=== PATIENT | female | born 1990 | race Caucasian/White ===

== ENCOUNTER 2019-11-17 19:55 | Inpatient (IN) | payer OTHER ==
[2019-11-17] MEDS ORDERED: ACETAMINOPHEN 325 MG TABLET (FP) PO ONE (20:00)
[2019-11-17] MEDS: ELECTROLYTE-148 SOLN 1,000 ML IV SCH (20:30)
--- NOTE | 2019-11-17 21:05 | HP ---
Past Medical History - Primary Care Physician PCP:: Leoncio Meadows E - Admission Chief Complaint: term gest., ctx on and off. History of Present Illness: For delivery, poss augmentation/induction. Uneventful gestation. 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: No: Alzheimer's, CVA, Dementia, Migraine, Multiple Sclerosis, Peripheral Neuropathy, Parkinson's, Seizure, Syncope, TIA, Vertigo, Other Cardiovascular: No: AFIB, Aneurysm, Aortic Insufficiency, Aortic Stenosis, CAD, CHF, Deep Vein Thrombosis, HTN, Hyperlipdemia, MS, Mitral Insufficiency, Mitral Stenosis, Murmur, Pulmonary Hypertension, Other Pulmonary: No: Asthma, Bronchitis, Cancer, COPD, O2 Dependent, Pneumonia, Previously Intubated, Pulmonary Embolus, Pulmonary Fibrosis, Sleep Apnea, Other Gastrointestinal: No: Ascites, Cancer, Constipation, Crohn's Disease, Diverticulitis, Diverticulosis, Esophageal Varices, Gastritis, GERD, GI Bleed, Hemorrhoids, Hiatal Hernia, Inflamatory Bowel Disease, Irritable Bowel Disease, Pancreatitis, Peptic Ulcer Disease, Ulcerative Colitis, Other Hepatobiliary: No: Cirrhosis, Cholelithiasis, Cholecystitis, Choledocholithiasis, Hepatitis A, Hepatitis B, Hepatitis C, Other Renal/: No: Renal Failure, Renal Inusuff, BPH, Cancer, Hematuria, Hemodialysis, Neurogenic Bladder, Renal Calculi, UTI, Other ...Para: 2 ... Weeks Gestation by Dates: 38.6 ...EDC by Dates: 11/26/19 Heme/Onc: No: Anemia, B12 Deficiency, Bleeding Disorder, Cancer, Current Chemotherapy, Current Radiation Therapy, Hemochromatosis, Hypercoaguable State, Myeloproliferative Synd, Sickle Cell Disease, Sickle Cell Trait, Thrombocytopenia, Other Infectious Disease: No: AIDS, C-Diff, Herpes Zoster, HIV, MRSA, STD's, Tuberculosis, VREF, Other Psych: No: Addictions, Anxiety, Bipolar, Depression, Panic, Psychosis, Schizophrenia, Other Musculoskeletal: No: Bursitis, Chronic low back pain, Hemiparesis, Hemiplegia, Osteoarthritis, Paraplegia, Other Rheumatology: No: Fibromyalgia, Gout, Lupus, Rheumatoid Arthritis, Sarcoidosis, Vasculitis, Other ENT: No: Allergic Rhinitis, Sinusitis, Other Endocrine: No: Owen's Disease, Donner's Disease, Diabetes Insipidus, Diabetes Mellitus, Hyperparathyroidism, Hyperthyroidism, Hypothyroidism, Osteopenia, SIADH, Other Dermatology: No: Basal Cell, Cellulitis, Eczema, Melanoma, Psoriasis, Squamous Cell, Other - Past Surgical History Past Surgical History: Yes: None Hx Myomectomy: No Hx Transabdominal Cerclage: No - Smoking History Have you smoked in the past 12 months: No - Alcohol/Substance Use Hx Alcohol Use: No History of Substance Use: reports: None - Social History History of Recent Travel: No Home Medications - Allergies Allergies/Adverse Reactions: Allergies Allergy/AdvReac Type Severity Reaction Status Date / Time No Known Allergies Allergy Verified 11/17/19 22:40 Review of Systems - Review of Systems Constitutional: reports: No Symptoms Eyes: reports: No Symptoms HENT: reports: No Symptoms Neck: reports: No Symptoms Cardiovascular: reports: No Symptoms Respiratory: reports: No Symptoms Gastrointestinal: reports: No Symptoms Genitourinary: reports: No Symptoms Breasts: reports: No Symptoms Reported Musculoskeletal: reports: No Symptoms Integumentary: reports: No Symptoms Neurological: reports: No Symptoms Endocrine: reports: No Symptoms Hematology/Lymphatic: reports: No Symptoms Psychiatric: reports: No Symptoms Physical Exam - Maternity Constitutional: Yes: Well Nourished, No Distress, Calm Eyes: Yes: WNL, Conjunctiva Clear, EOM Intact HENT: Yes: WNL, Atraumatic, Normocephalic Neck: Yes: WNL, Supple, Trachea Midline Cardiovascular: Yes: WNL, Regular Rate and Rhythm Breast(s): Yes: WNL - Abdominal Exam/OB Fundal Height: 40 Number of Fetuses: Single Presentation: Vertex Contractions: Yes Regularity: Irregular Intensity: Mild Monitor Mode: External Heart Rate (range): 140 Heart Rate Location: [facility] Category: I Accelerations: Uniform Decelerations: None - Vaginal Exam/OB Vaginal Bleeding: No Speculum Exam: No Dilatation (cm): 1 Effacement (%): 0 Amniotic Membrane Status: Intact Presentation: Vertex/Position Station: -3 - Physical Exam Musculoskeletal: Yes: WNL Extremities: Yes: WNL Integumentary: Yes: WNL ...Motor Strength: WNL Problem List - Problems (1) Term Code(s): Z34.90 - ENCNTR FOR SUPRVSN OF NORMAL , UNSP, UNSP TRIMESTER (2) LGA (large for gestational age) fetus Code(s): GGK5452 - (3) Encounter for induction of labor Code(s): Z34.90 - ENCNTR FOR SUPRVSN OF NORMAL , UNSP, UNSP TRIMESTER (4) Irregular uterine contractions Code(s): O62.2 - OTHER UTERINE INERTIA Assessment/Plan Ctx on and off all day. Induction/augmentation offered. Pt. desires to be delivered. Given Tylenol for DOAN. BP under control. Anemia. Cervidil inserted.
[2019-11-17 21:33] VITALS: BMI 37.3
[2019-11-17] MEDS ORDERED: ACETAMINOPHEN 325 MG TABLET (FP) ONE (22:11)
[2019-11-17 22:37] LABS: BASO % 0.7 % (0-2.0); EOS % 1.8 % (0-4.5); HEMATOCRIT 26.5 % (32.4-45.2); HEMOGLOBIN 8.7 GM/dL (10.7-15.3); LYMPH % 14.2 % (8-40); MCH 27.5 pg (25.7-33.7); MCHC 32.8 g/dl (32.0-36.0); MEAN CELL VOLUME 83.8 fl (80-96); MEAN PLT VOLUME 11.8 fl (7.5-11.1); MONO % 9.9 % (3.8-10.2); NEUT % 73.4 % (42.8-82.8); PLATELET COUNT 180 K/MM3 (134-434); RBC 3.16 M/mm3 (3.60-5.2); RDW 13.7 % (11.6-15.6); WHITE BLOOD COUNT 8.2 K/mm3 (4.0-10.0)
[2019-11-17 22:44] LABS: INR 0.92 (0.83-1.09); PROTHROMBIN TIME (PATIENT) 10.9 SEC (9.7-13.0)
[2019-11-17 22:48] LABS: ACTIVATED PTT 26.2 SECONDS (25.2-36.5)
[2019-11-17 23:03] LABS: BLOOD UREA NITROGEN 8.9 mg/dL (7-18); CALCIUM 8.2 mg/dL (8.5-10.1); CREATININE 0.6 mg/dL (0.55-1.3); POTASSIUM 3.9 mmol/L (3.5-5.1)
[2019-11-17] MEDS ORDERED: DINOPROSTONE 10 MG VAGINAL SUPPOSITORY VG ONE (23:21)
[2019-11-18 03:37] LABS: RETICULOCYTES 2.19 % (0.5-1.5)
[2019-11-18 04:15] LABS: URIC ACID 4.1 mg/dL (2.6-7.2)
[2019-11-18 05:33] LABS: PH,URINE 6.5 (5.0-8.0); URINE APPEARANCE CLEAR; URINE BILIRUBIN NEGATIVE (NEGATIVE); URINE COLOR YELLOW; URINE GLUCOSE (UA) NEGATIVE (NEGATIVE); URINE KETONE NEGATIVE (NEGATIVE); URINE LEUK ESTERASE NEGATIVE (NEGATIVE); URINE NITRITE NEGATIVE (NEGATIVE); URINE PROTEIN NEGATIVE (NEGATIVE); URINE UROBILINOGEN 0.2 mg/dL (0.2-1.0)
--- NOTE | 2019-11-18 06:11 | PN ---
Progress Note, Labor Vaginal Exam #2 Labor Exam Date: 11/18/19 Labor Exam Time: 06:05 Heart Rate (range): 135, reactive Dilatation: 1 Effacement (%): 0 Amniotic Membrane Status: Intact Presentation: Vertex/Position Station: -3 (No change w Cervidil. Removed. BP labile. Preeclampsia labs WNL. Unable to ROM. Rest, shower. Pitocin in 1 hour. D/W patient.)
[2019-11-18] MEDS ORDERED: OXYTOCIN 30 UNITS in 0.9% NS 30 UNIT/500 ML INFUS.BAG IVPB SCH (07:00)
[2019-11-18] MEDS ORDERED: OXYTOCIN 30 UNITS in 0.9% NS 30 UNIT/500 ML INFUS.BAG IVPB ONE (07:42)
[2019-11-18] MEDS: ELECTROLYTE-148 SOLN 1,000 ML IV SCH ×2 (08:00→13:00)
[2019-11-18] MEDS ORDERED: OXYTOCIN 20 UNITS in 0.9% NS 20 UNIT/1,000 ML INFUS.BAG IV ONE (10:02)
--- NOTE | 2019-11-18 11:14 | PN ---
Progress Note, Labor Vaginal Exam #3 Labor Exam Date: 11/18/19 Labor Exam Time: 10:50 Heart Rate (range): 135 Dilatation: 1 Effacement (%): 0 Amniotic Membrane Status: Intact Presentation: Vertex/Position Station: -3 (Few isolated lates; Pit stopped. FH now cat. 1 - Pit restarted.)
--- NOTE | 2019-11-18 14:22 | PN ---
Progress Note, Labor Vaginal Exam #4 Labor Exam Date: 11/18/19 Labor Exam Time: 14:14 Heart Rate (range): 140 Dilatation: 2 Effacement (%): 30 Amniotic Membrane Status: Intact Station: -2 (AROM - clear.) Remarks: Slow progress. FH is stable. Pt. tolerates her labor well; no pain meds yet. Observe progress. Poss. c/s discussed.
[2019-11-18] MEDS ORDERED: BUTORPHANOL TARTRATE 1 MG/ML VIAL IVPB ONE (14:30)
[2019-11-18] MEDS ORDERED: PROMETHAZINE HCL 25 MG/1 ML VIAL IVPB ONE (14:30)
[2019-11-18] MEDS ORDERED: PROMETHAZINE HCL 25 MG/1 ML VIAL ONE (14:32)
[2019-11-18] MEDS ORDERED: BUTORPHANOL TARTRATE 2 MG/ML VIAL ONE (14:32)
--- NOTE | 2019-11-18 16:52 | PN ---
Progress Note, Labor Vaginal Exam #5 Labor Exam Date: 11/18/19 Labor Exam Time: 16:50 Dilatation: 2-3 Effacement (%): 30 Amniotic Membrane Status: Ruptured Presentation: Vertex/Position Station: -3 (No progress. Vx out of pelvis. D/w pt. Will deliver by c/section. All pros and cons discussed.)
[2019-11-18] MEDS ORDERED: CITRIC ACID/SODIUM CITRATE 30 ML UNIT-DOSE CUP PO ONE ×2 (16:56→16:57)
[2019-11-18] MEDS ORDERED: morphine SULFATE/PF 0.5 MG/ML (2cc Syringe - QUVA) ONE (17:39)
[2019-11-18] MEDS ORDERED: ACETAMINOPHEN 1000 MG/100 ML VIAL (NON FORMULARY) IVPB PRN (19:43)
[2019-11-18] MEDS ORDERED: IBUPROFEN 800 MG/8 ML IJ IVPB PRN (19:43)
[2019-11-18] MEDS ORDERED: oxyCODONE HCL 5 MG TABLET PO PRN (19:43)
[2019-11-18] MEDS ORDERED: ONDANSETRON 4 MG/2 ML VIAL IVPB PRN (19:43)
[2019-11-18] MEDS ORDERED: SENNOSIDES/DOCUSATE COMBO (SENNA PLUS) TABLET (UD) PO PRN (19:43)
[2019-11-18] MEDS ORDERED: OXYTOCIN 20 UNITS in 0.9% NS 20 UNIT/1,000 ML INFUS.BAG IV SCH (19:45)
--- NOTE | 2019-11-18 20:00 | PN ---
Delivery - Delivery Section: Primary Type of Anesthesia: Spinal Episiotomy/Laceration: None EBL (cc): 500 Delivery, Single - Stages of Labor Date 1st Stage Initiatied: 11/18/19 Time 1st Stage Initiated: 09:00 Date of Delivery: 11/18/19 Time of Delivery: 17:59 Time Placenta Delivered: 18:00 - Condition of Infant Security Control Assessor/Furnace Stock Inspector Present: Yes Name: Stephanie Alexander Gender: Male Weight: 6 lb 9 oz Position: Right, OT Total Hours ROM (Hrs/Mins): 3/49 - 1 Minute Total Score: 9 5 Minutes Total Score: 9 - [place] Feeding Plan Initial Plan: Exclusive throughout hospitalization Remarks - Remarks Remarks: Uneventful c/section. Pt is happy.
[2019-11-19] MEDS: CEFAZOLIN 1 GM/D5W 1 GM/50 ML BAG IVPB SCH ×3 (02:30→17:54)
[2019-11-19 08:22] LABS: BASO % 0.6 % (0-2.0); EOS % 1.4 % (0-4.5); HEMATOCRIT 24.7 % (32.4-45.2); HEMOGLOBIN 7.9 GM/dL (10.7-15.3); LYMPH % 12.7 % (8-40); MCH 27.4 pg (25.7-33.7); MCHC 32.2 g/dl (32.0-36.0); MEAN CELL VOLUME 84.9 fl (80-96); MEAN PLT VOLUME 9.9 fl (7.5-11.1); NEUT % 74.3 % (42.8-82.8); PLATELET COUNT 140 K/MM3 (134-434); RDW 13.8 % (11.6-15.6); WHITE BLOOD COUNT 6.9 K/mm3 (4.0-10.0)
--- NOTE | 2019-11-19 08:43 | PN ---
Progress Note, Physician - Current Medication List Current Medications: Active Medications Acetaminophen (Tylenol -) 650 mg PO Q6H PRN PRN Reason: PAIN LEVEL 1-5 Acetaminophen (Ofirmev Injection -) 1,000 mg IVPB Q6H PRN PRN Reason: PAIN LEVEL 4 - 6 Stop: 11/19/19 19:43 Bisacodyl (Dulcolax Suppository -) 10 mg RC PRN PRN PRN Reason: CONSTIPATION Parenteral Electrolytes (Plasma-Lyte 148 -) 1,000 mls @ 125 mls/hr IV ASDIR EVELYN Last Admin: 11/18/19 13:00 Dose: 125 mls/hr Documented by: Oxytocin/Sodium Chloride (Normal Saline+20 Units Oxytocin -) 20 unit in 1,000 mls @ 125 mls/hr IV ASDIR EVELYN Cefazolin Sodium (Ancef 1 Gm Premixed Ivpb -) 1 gm in 50 mls @ 100 mls/hr IVPB Q8H-IV EVELYN Stop: 11/20/19 01:59 Last Admin: 11/19/19 02:30 Dose: 100 mls/hr Documented by: Ibuprofen (Motrin -) 600 mg PO Q4H PRN PRN Reason: PAIN LEVEL 1 - 3 Ibuprofen (Caldolor Injection -) 800 mg IVPB Q8H PRN PRN Reason: PAIN LEVEL 1-5 Stop: 11/19/19 19:43 Last Admin: 11/18/19 23:38 Dose: 800 mg Documented by: Ondansetron HCl (Zofran Injection) 4 mg IVPB Q4H PRN PRN Reason: NAUSEA AND/OR VOMITING Oxycodone HCl (Roxicodone -) 5 mg PO Q6H PRN PRN Reason: Pain Level 4 - 8 Senna/Docusate Sodium (Pericolace -) 2 tablet PO HS PRN PRN Reason: CONSTIPATION Simethicone (Mylicon -) 80 mg PO Q4H PRN PRN Reason: GAS - Objective Vital Signs: Vital Signs Temperature 98.2 F 11/19/19 06:00 Pulse Rate 58 L 11/19/19 06:00 Respiratory Rate 18 11/19/19 08:00 Blood Pressure 124/68 11/19/19 06:00 O2 Sat by Pulse Oximetry (%) 100 11/19/19 06:00 Eyes: Yes: WNL, Conjunctiva Clear HENT: Yes: WNL, Atraumatic, Normocephalic Neck: Yes: WNL, Supple, Trachea Midline Cardiovascular: Yes: WNL, Regular Rate and Rhythm Respiratory: Yes: WNL, Regular, CTA Bilaterally Gastrointestinal: Yes: WNL, Normal Bowel Sounds, Soft (Invcision clean and dry.) Genitourinary: Yes: WNL Breast(s): Yes: WNL Musculoskeletal: Yes: WNL Extremities: Yes: WNL Edema: No Integumentary: Yes: WNL Neurological: Yes: WNL, Alert, Oriented ...Motor Strength: WNL Psychiatric: Yes: WNL Labs: CBC, BMP 11/19/19 08:10 11/17/19 22:30 INR, PTT INR 0.92 (0.83-1.09) 11/17/19 22:30 Problem List - Problems (1) Term Code(s): Z34.90 - ENCNTR FOR SUPRVSN OF NORMAL , UNSP, UNSP TRIMESTER (2) LGA (large for gestational age) fetus Code(s): [id number] - (3) Encounter for induction of labor Code(s): Z34.90 - ENCNTR FOR SUPRVSN OF NORMAL , UNSP, UNSP TRIMESTER (4) Irregular uterine contractions Code(s): O62.2 - OTHER UTERINE INERTIA (5) Status post section Code(s): Z98.891 - HISTORY OF UTERINE SCAR FROM PREVIOUS SURGERY Assessment/Plan Good recovery. OOB, reg. diet. May shower.
[2019-11-19] MEDS: IBUPROFEN 600 MG TABLET (FP) PO PRN ×3 (09:08→21:15)
[2019-11-19] MEDS: SIMETHICONE 80 MG TAB.CHEW (FP) PO PRN ×3 (09:08→21:15)
[2019-11-19] MEDS: ACETAMINOPHEN 325 MG TABLET (FP) PO PRN ×3 (09:09→21:16)
--- NOTE | 2019-11-19 10:35 | PN ---
Progress Note (short form) - Note Progress Note: POD #1 s/p C/s under spinal anesthesia with Duramorph. Doing well, denies puritus/n/v. Pain controlled. All questions answered.
[2019-11-19] MEDS: ELECTROLYTE-148 SOLN 1,000 ML IV SCH (19:03)
[2019-11-19] MEDS ORDERED: BISACODYL 10 MG SUPP.RECT RC PRN (19:43)
[2019-11-20] MEDS: ACETAMINOPHEN 325 MG TABLET (FP) PO PRN (08:59)
[2019-11-20] MEDS: SIMETHICONE 80 MG TAB.CHEW (FP) PO PRN (08:59)
[2019-11-20] MEDS: IBUPROFEN 600 MG TABLET (FP) PO PRN (08:59)
[2019-11-20 09:32] VITALS: BP 125/71; PULSE 66; TEMP 97.7
--- NOTE | 2019-11-20 10:29 | OP ---
DATE OF OPERATION: DATE OF DICTATION: 11/18/2019 PREOPERATIVE DIAGNOSES: 1. Intrauterine 39 weeks. 2. Arrest of labor. 3. Failed augmentation. POSTOPERATIVE DIAGNOSES: 1. Intrauterine 39 weeks. 2. Arrest of labor. 3. Failed augmentation. 4. Occipital transverse to occipital posterior position. 5. Tight nuchal cord. 6. True knot. OPERATION: Transverse low segment primary section. SURGEON: Eliel Buckley MD PRESS OPERATOR APPRENTICE: Leighton Juan MD ANESTHESIA: Spinal. ANESTHESIOLOGIST: MD Shanta NEONATOLOGY: Chacha Alexander DO PROCDURE AND FINDINGS: Under excellent, fast spinal block, patient was placed in dorsal supine position with mild left lateral tilt, prepped and draped in the normal fashion. Incision was entered through Pfannenstiel incision that was carried transversely through subcutaneous tissue and fascia. The recti muscles were dissected off the fascia, in the midline and peritoneum was entered sharply. Peritoneal incision was opened vertically. Term uterus with normal adnexa was noted. Lower uterine segment was distended by the head that was not in the inlet. Bladder flap was incised and peeled off the lower uterine segment. Hysterotomy was performed transversely and extended laterally with bandage scissors. Clear amniotic fluid was observed. A male was delivered through the hysterotomy, cried and breathed spontaneously. Cord was noted to be tight around the neck holding the baby up. There was also a true knot on the umbilical cord. Umbilical cord was divided with delay and baby was handed over to the team. 's were 9 and 9, and baby's weight was 6 pounds, 9 ounces. Baby was in an LOT to LOP position. Placenta was removed and uterine cavity was cleaned. Hysterotomy was closed with continuous running Biosyn 0 interlocking suture. One area with possible oozing was secured with Biosyn 0 mattress suture that also reinforced the closure. Pelvis was lavaged and thoroughly examined. Hemostasis was excellent. Sponge and instrument count was correct. Abdomen was closed in layers with peritoneum closed with continuous running 2-0 Biosyn suture. Fascia was closed with continuous running Vicryl 1 suture. Subcutaneous tissue was approximated with Biosyn 2-0 interrupted suture and skin was closed with subcuticular continuous running V-Loc 3-0 suture. Steri-Strips and sterile dressing were applied on the incision. Dressing was held in place with a binder without tape. Urine was copious and clear in the Schneider catheter bag. Blood loss was 500 mL. There was no complication with surgical part, nor with the anesthesia. Patient was transferred to PACU comfortable and stable. ELIEL BUCKLEY MD [id number]
--- NOTE | 2019-11-20 15:20 | PN ---
Progress Note (short form) - Note Progress Note: POD # 2. VSS. Feels good. PE WNL. Instructed. Home. Problem List - Problems (1) Term Code(s): Z34.90 - ENCNTR FOR SUPRVSN OF NORMAL , UNSP, UNSP TRIMESTER (2) LGA (large for gestational age) fetus Code(s): [id number] - (3) Encounter for induction of labor Code(s): Z34.90 - ENCNTR FOR SUPRVSN OF NORMAL , UNSP, UNSP TRIMESTER (4) Irregular uterine contractions Code(s): O62.2 - OTHER UTERINE INERTIA (5) Status post section Code(s): Z98.891 - HISTORY OF UTERINE SCAR FROM PREVIOUS SURGERY
--- NOTE | 2019-11-20 15:23 | DS ---
Physical Exam-ROAD MACHINERY INSPECTOR Vital Signs: Vital Signs Temperature 97.7 F 11/20/19 09:27 Pulse Rate 66 11/20/19 09:27 Respiratory Rate 18 11/20/19 09:27 Blood Pressure 125/71 11/20/19 09:27 O2 Sat by Pulse Oximetry (%) 100 11/19/19 06:00 Constitutional: Yes: Well Nourished, No Distress, Calm Eyes: Yes: WNL, Conjunctiva Clear, EOM Intact HENT: Yes: WNL, Atraumatic, Normocephalic Neck: Yes: WNL, Supple, Trachea Midline Cardiovascular: Yes: WNL, Regular Rate and Rhythm Respiratory: Yes: WNL, Regular, CTA Bilaterally Gastrointestinal: Yes: WNL ...Rectal Exam: Yes: WNL Renal/: Yes: WNL Breast(s): Yes: WNL Musculoskeletal: Yes: WNL Extremities: Yes: WNL Integumentary: Yes: WNL Neurological: Yes: WNL, Alert, Oriented ...Motor Strength: WNL Psychiatric: Yes: WNL, Alert, Oriented Labs: CBC, BMP 11/19/19 08:10 11/17/19 22:30 Delivery - Delivery Vaginal Delivery: No Problems (Healing well.) Section: Primary Type of Anesthesia: Spinal Episiotomy/Laceration: None EBL (cc): 500 Delivery, Single - Stages of Labor Date 1st Stage Initiatied: 11/18/19 Time 1st Stage Initiated: 09:00 Date of Delivery: 11/18/19 Time of Delivery: 17:59 Time Placenta Delivered: 18:00 - Condition of Infant Coal Trammer/Passenger Service Agent Present: Yes Name: Stephanie Alexander Gender: Male Weight: 6 lb 9 oz Position: Right, OT Total Hours ROM (Hrs/Mins): 3/49 - 1 Minute Total Score: 9 5 Minutes Total Score: 9 - [place] Feeding Plan Initial Plan: Exclusive throughout hospitalization Discharge Summary Problems reviewed: Yes Current Active Problems Encounter for induction of labor (Acute) Irregular uterine contractions (Acute) LGA (large for gestational age) fetus (Acute) Status post section (Acute) Term (Acute) Procedures: Principal: c/section Hospital Course: uneventful Condition: Good - Instructions Diet, Activity, Other Instructions: Physical activity Resume your normal everyday activity as tolerated no heavy lifting or exercise until seen by your surgeon. You may walk unlimited bruna of and climb stairs. You may resume driving the car when you feel safe and comfortable behind the wheel. No sexual activity as instructed. Wound care If you have a bandage, leave it on, and keep dry for 48-72 hours. After that time discard the outer bandage. If they are tapes on the skin under the out of bandage leave them in place. They will peel off in the next 7 to 10 days. Do Not Peel them off. You may shower the day after surgery. If there are tapes present on the skin, you may shower over them. Diet There are no dietary restrictions. Eat healthy, high-fiber foods. Drink 6 to 8 glasses of liquid each day. This will assist in keeping your bowels are regular. Pain management You may take Tylenol or acetaminophen or Ibuprofen (for example, Motrin, Advil etc.) from my pain prescription medication is ordered should be taken as prescribed for moderate to severe pain. Call MD for any of the following: Severe pain not relieved by medication Fever of 101 or higher Excessive bleeding or drainage on dressing Inability to urinate Disposition: HOME - Home Medications Prescription Drug Monitoring Program (I-STOP) results: I-STOP reviewed and no issues identified (F/U in 3 weeks or sooner PRN.)
--- NOTE | 2019-11-23 20:07 | PATH ---
Surgical Pathology Report Patient Name: LINDSAY GUADALUPE [facility]. Rec. 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 TRIVASCULAR UMBILICAL CORD WITH LOOSE TRUE KNOT. Electronically Signed Jessica Andrew M.D. Gross Description The specimen is received fresh labeled placenta and is a 400 gram, 17.5 x 14.5 x 2.5 cm. placenta with attached membranes and umbilical cord. The attached membranes are blakely, translucent with focal opacities and insert marginally. The umbilical cord measures 45 cm. in length and averages 1.2 cm. in diameter. The cord inserts eccentrically, 3 cm. to the nearest margin. There is a true knot present in the umbilical cord. Cut surface of the umbilical cord reveals 3 vessels. The surface is coyne-blue with minimal fibrin deposition and appropriate caliber vessels. The maternal surface is red-brown with focal defects. Sectioning reveals red-brown, spongy parenchyma. Sectioning reveals a 2.0 cm in greatest dimension intraparenchymal lesion. The remaining placental parenchyma is red-brown and spongy. Pot Firer sections are submitted in three cassettes as follows: 1-membrane roll and umbilical cord; 2-lesion; 3-[id number] section of placenta. /11/21/2019 [facility]11/21/2019
== END 2019-11-20 17:42 | disposition home or self-care (01) | DRG 540 ==
LOC: JLDR 19:55 → J3W 11-18 20:00
PROVIDERS: ADMIT Specialist; ATTEND Specialist
PROC: 3E0P7VZ Introduction of Hormone into Female Reproductive, Via Natural or Artificial Opening (ICD-10-PCS; 2019-11-17)
PROC: 10D00Z1 Extraction of Products of Conception, Low, Open Approach (ICD-10-PCS; principal; 2019-11-18)
PROC: 10907ZC Drainage of Amniotic Fluid, Therapeutic from Products of Conception, Via Natural or Artificial Opening (ICD-10-PCS; 2019-11-18)
DX: O62.2 Other uterine inertia (principal); P08.1 Other heavy for gestational age newborn; Z37.0 Single live birth; O69.2XX0 Labor and delivery complicated by other cord entanglement, with compression, not applicable or unspecified; O69.1XX0 Labor and delivery complicated by cord around neck, with compression, not applicable or unspecified; O61.0 Failed medical induction of labor; O99.02 Anemia complicating childbirth; D64.9 Anemia, unspecified; Z3A.39 39 weeks gestation of pregnancy
CPT/HCPCS: 36415; 80048; 81003; 82977; 83010; 84450; 84460; 84550; 85025; 85032; 85044; 85610; 85730; 86780; 86850; 86900; 86901; 88307-TC; U0003

== ENCOUNTER 2019-11-23 11:42 | Emergency (ER) | payer OTHER ==
[2019-11-23 11:56] VITALS: BP 143/86; PULSE 73; TEMP 98.5; BMI 38.3
--- NOTE | 2019-11-23 12:22 | PDOC ---
History of Present Illness - General Chief Complaint: Pain Stated Complaint: POSSIBLE INFECT Time Seen by Provider: 11/23/19 12:00 History Source: Patient Exam Limitations: No Limitations - History of Present Illness Travel History: No Initial Comments: 11/23/19 12:17 29-year-old female status post 5 days ago which went uneventful pr esents to ED with complaints of tenderness to the area along with an open area. Patient denies any fever, chills, redness, or difficulty urinating. Patient denies history of diabetes and otherwise is healthy Timing/Duration: reports: constant Quality: reports: mild Abdominal Pain Onset Location: reports: suprapubic Pain Radiation: reports: no radiation Activities at Onset: reports: none Aggravating Factors: improves with: None Alleviating Factors: improves with: None Past History - Travel History Traveled outside of the country in the last 30 days: No Close contact w/someone who was outside of country & ill: No - Medical History Allergies/Adverse Reactions: Allergies Allergy/AdvReac Type Severity Reaction Status Date / Time No Known Allergies Allergy Verified 11/17/19 22:40 Asthma: No Cancer: No Cardiac Disorders: No Diabetes: No HTN: Yes (gestational HTN) Seizures: No Thyroid Disease: No - Psycho-Social/Smoking History Patient Lives Alone: No Lives with/in: spouse/SO Smoking History: Never smoked Have you smoked in the past 12 months: No Number of Cigarettes Smoked Daily: 10 If you are a former smoker, when did you quit?: 6weeks Information on smoking cessation initiated: No - Substance Abuse Hx (Audit-C & DAST Scrn) How often the patient has a drink containing alcohol: Never Score: In Men: 4 or > Positive; In Women: 3 or > Positive: 0 Screen Result (Pos requires Nsg. Audit-10AR): Negative In the last yr the pt used illegal drug/Rx for NonMed reason: No Score: Yes response is considered Positive: 0 Screen Result (Positive result requires Nsg. DAST-10): Negative Review of Systems - Review of Systems Able to Perform ROS?: No Constitutional: No: Symptoms Reported HEENTM: No: Symptoms Reported Respiratory: No: Symptoms reported Cardiac (ROS): No: Symptoms Reported ABD/GI: Yes: Other : No: Symptoms Reported Musculoskeletal: No: Symptoms Reported Integumentary: Yes: Other Neurological: No: Symptoms reported *Physical Exam - Vital Signs Last Vital Signs Temp Pulse Resp BP Pulse Ox 98.5 F 73 17 143/86 99 11/23/19 11:47 11/23/19 11:47 11/23/19 11:47 11/23/19 11:47 11/23/19 11:47 - Physical Exam General Appearance: Yes: Nourished, Appropriately Dressed. No: Apparent Distress HEENT: negative: Pale Conjunctivae Respiratory/Chest: positive: Lungs Clear, Normal Breath Sounds. negative: Respiratory Distress, Accessory Muscle Use Cardiovascular: positive: Regular Rhythm, Regular Rate. negative: Murmur Gastrointestinal/Abdominal: positive: Soft, Tenderness (mild over csection incision) Extremity: positive: Normal Capillary Refill Integumentary: positive: Normal Color, Warm, Moist, Other (29-year-old female status post 5 days ago which went uneventful presents to ED with complaints of tenderness to the area along with an open area. Patient denies any fever, chills, redness, or difficulty urinating. Patient denies history of diabetes and otherwise is healthy) Neurologic: positive: Motor Strength 5/5 (ambulatory) Medical Decision Making - Medical Decision Making 11/23/19 12:27 chief complaint: Here for evaluation of incision due to tenderness and loose Steri-Strips. Patient called [employer]CTIONAL TESTER [employer]WRIT[employer] who was not available in L&D recommended she go to the ER for further evaluation. Exam: Incision intact with small opening to the left lateral aspect with pink epithelial skin. Plan: Area cleansed with saline new Steri-Strips applied and reinforced. Patient given post care instructions Discharge - Discharge Information Problems reviewed: Yes Clinical Impression/Diagnosis: Status post section Condition: Good Disposition: HOME - Follow up/Referral Referrals: ON STAFF,NOT [Primary Care Provider] - - Patient Discharge Instructions Patient Printed Discharge Instructions: DI for Laceration Repair Steri-Strips Additional Instructions: Although you did not have a laceration I have given you instructions in regards to Steri-Strip care. Please keep area clean dry and intact wear cotton underwear allowing adequate airflow to promote healing and drying - Post Discharge Activity
== END 2019-11-23 12:40 | disposition home or self-care (01) ==
LOC: JERFT 11:42 → JER 11:42 → JERFT 12:40
DX: O90.0 Disruption of cesarean delivery wound (principal)
CPT/HCPCS: 99282-25

== ENCOUNTER 2019-12-08 22:30 | Emergency (ER) | payer OTHER ==
[2019-12-08 22:47] VITALS: BP 130/70; PULSE 77; TEMP 98.3; BMI 30.2
--- NOTE | 2019-12-08 22:53 | PDOC ---
History of Present Illness - General Chief Complaint: Wound Stated Complaint: LAC History Source: Patient Exam Limitations: No Limitations - History of Present Illness Initial Comments: 12/08/19 22:50 HISTORY OF PRESENT ILLNESS: 29-year-old woman currently 3 weeks who presents emergency department for evaluation of irritation and drainage from C- section site. Patient reports she was seen and evaluated in this emergency department last week and had additional Steri-Strips placed on wounds and was discharged to follow-up with OB. Patient was in touch with her communication instructor Dr. Meadows who recommended she come to an urgent care or the emergency department for reevaluation of her wound. She denies any fevers but reports having some mild chills. Patient recently diagnosed with mastitis and is currently taking Keflex for treatment. No recent travel or sick contacts. PAST MEDICAL HISTORY: Denies past medical history SURGICAL HISTORY: Denies ALLERGIES: No known drug allergies REVIEW OF SYSTEMS General/Constitutional: Denies fever or chills. Denies weakness, weight change. HEENT: Denies change in vision. Denies ear pain or discharge. Denies sore throat. Cardiovascular: Denies chest pain or shortness of breath. Respiratory: Denies cough, wheezing, or hemoptysis. Gastrointestinal: Denies nausea, vomiting, diarrhea or constipation. Denies rectal bleeding. Genitourinary: Denies dysuria, frequency, or change in urination. Musculoskeletal: Denies joint or muscle swelling or pain. Denies neck or back pain. Skin and breasts: See HPI Neurologic: Denies headache, vertigo, loss of consciousness, or loss of sensation. Psychiatric: Denies depression or anxiety. Endocrine: Denies increased thirst. Denies abnormal weight change. Hematologic/Lymphatic: Denies anemia, easy bleeding, or history of blood clots. Allergic/Immunologic: Denies hives or skin allergy. Denies latex allergy. PHYSICAL EXAM General Appearance: Well-appearing, appropriately dressed. No apparent distress , no intoxication. Gastrointestinal/Abdominal: Normal bowel sounds. Abdomen soft, non-distended. No tenderness or rebound tenderness. No organomegaly, pulsatile mass, guarding, hernia, hepatomegaly, splenomegaly. Lymphatic: No adenopathy, tenderness. Integumentary: suture line present with opening to the medial portion of the site. Purulent drainage presents which is not foul-smelling. No erythema or collection palpable. Past History - Medical History Allergies/Adverse Reactions: Allergies Allergy/AdvReac Type Severity Reaction Status Date / Time No Known Allergies Allergy Verified 11/17/19 22:40 Asthma: No Cancer: No Cardiac Disorders: No COPD: No Diabetes: No HTN: Yes (gestational HTN) Seizures: No Thyroid Disease: No - Reproductive History Is Patient Now?: No - Psycho-Social/Smoking History Smoking History: Never smoked Have you smoked in the past 12 months: No Number of Cigarettes Smoked Daily: 10 If you are a former smoker, when did you quit?: 6weeks - Substance Abuse Hx (Audit-C & DAST Scrn) How often the patient has a drink containing alcohol: Never Score: In Men: 4 or > Positive; In Women: 3 or > Positive: 0 Screen Result (Pos requires Nsg. Audit-10AR): Negative *Physical Exam - Vital Signs Last Vital Signs Temp Pulse Resp BP Pulse Ox 98.3 F 77 20 130/70 99 12/08/19 22:39 12/08/19 22:39 12/08/19 22:39 12/08/19 22:39 12/08/19 22:39 ED Treatment Course - RADIOLOGY Radiology Studies Ordered: Category Date Time Status ABDOMEN US -LIMITED [US] Stat Ultrasound 12/08/19 22:45 Ordered Medical Decision Making - Medical Decision Making 12/08/19 22:52 A/P: 29-year-old woman with pain at the site. Wound culture Sonogram to rule out abscess Likely discharge 12/08/19 23:24 Ultrasound images reviewed. No obvious abscess formation present. Patient to continue Keflex for treatment of mastitis. Which should cover any infection or cellulitis presents to the wounds. Would defer additional treatment as patient is currently breast-feeding and other antibiotics could be potentially harmful to the . Would defer until results of wound culture have been resulted. Discharge home to follow-up with OB I discussed the physical exam findings, ancillary test results and final diagnoses with the patient. I answered all of the patient's questions. The patient was satisfied with the care received and felt comfortable with the discharge plan and treatment plan. The patient will call their primary care physician within 24 hours to arrange follow-up and will return to the Emergency Department with any new, persistent or worsening symptoms. Portions of this note have been documented using voice recognition software. As a result, errors may occur in the molecular geneticist process. Effort has been made to correct all grammatical and molecular geneticist error, but some may have been missed which may produce sporadic inaccurate molecular geneticist or nonsensical phrases. Discharge - Discharge Information Problems reviewed: Yes Clinical Impression/Diagnosis: Visit for wound check Condition: Stable Disposition: HOME - Admission No - Follow up/Referral - Patient Discharge Instructions Additional Instructions: Continue previously prescribed antibiotics. Follow-up with your OB as scheduled for your next appointment. Keep area open to air to allow better wound healing. Return to the emergency department for any new or worsening symptoms. Thank you very much for choosing us to provide your emergent healthcare needs. - Post Discharge Activity
== END 2019-12-08 23:33 | disposition home or self-care (01) ==
LOC: JER 22:30 → JERFT 22:30 → JER 23:33
DX: Z98.890 Other specified postprocedural states (principal)
CPT/HCPCS: 76705-TC; 87070; 87186; 87205; 99284-25

== ENCOUNTER 2020-02-05 22:32 | Emergency (ER) | payer OTHER ==
--- OUTSIDE RECORDS SUMMARY | 2020-02-05 23:03 | XMS ---
:1990 Author Organization [facility] Support Name Relationship Address Phone ENRIQUES PARTNER [address] [place] [address] UE Unavailable Unavailable Unavailable UE Unavailable Unavailable [employer] Unavailable [address] [id number] [address] [place] [address] [employer] Unavailable Unavailable Unavailable ANAYELI MOTHER [address] [place] [address] GREGORY GUADALUPE Mother [address], [place] [address] Re-disclosure Warning The records that you are about to access may contain information from federally- assisted alcohol or drug abuse programs. If such information is present, then the following federally mandated warning applies: This information has been disclosed to you from records protected by federal confidentiality rules (42 CFR part 2). The federal rules prohibit you from making any further disclosure of this information unless further disclosure is expressly permitted by the written consent of the person to whom it pertains or as otherwise permitted by 42 CFR part 2. A general authorization for the release of medical or other information is NOT sufficient for this purpose. The Federal rules restrict any use of the information to criminally investigate or prosecute any alcohol or drug abuse patient.The records that you are about to access may contain highly sensitive health information, the redisclosure of which is protected by Article 27-F of the [place] State Public Health law. If you continue you may haveaccess to information: Regarding HIV / AIDS; Provided by facilities licensed or operated by the [facility] Office of Mental Health; or Provided by the [facility] Office for People With Developmental Disabilities. If such information is present, then the following [facility] mandated warning applies: This information has been disclosed to you from confidential records which are protected by state law. State law prohibits you from making any further disclosure of this information without the specific written consent of the person to whom it pertains, or as otherwise permitted by law. Any unauthorized further disclosure in violation of state law may result in a fine or care home sentence or both. A general authorization for the release of medical or other information is NOT sufficient authorization for further disclosure. Encounters Encounter Providers Location Date Indications Data Source(s ) [facility] 11/01/2018 eCW3 ([facility] 12:00:00 AM [facility] - [facility]) 11/01/2018 12:00:00 AM EDT [facility] 07/10/2018 eCW3 ([facility] 12:00:00 [facility] - [facility]) 07/10/2018 12:00:00 AM EDT [id number] 06/12/2018 eCW 3 ([facility] A[facility] 12:00:00 AM [employer] [facility] EST - Care) 06/12/2018 12:00:00 AM EST Insurance Providers Payer name Policy type Policy ID Covered Covered alliance party's Policy P aileen / Coverage alliance party ID relationship to [employer] ormation type waddell ALAN [id number] SP [id number] HEALTH NON CAP PENDING [id number] SP [id number] WC/NF ONLY Problems, Conditions, and Diagnoses Code Display Name Description Problem Type Effective Dates Data Source(s) F43.20 Adjustment Adjustment Problem 11/03/2018 eCW3 ([facility] disorder 12:00:00 AM EDT [facility] Care) Z63.4 Bereavement Bereavement Problem 11/03/2018 eCW3 ([facility] 12:00:00 AM EDT [facility] Care) 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 06/14/2018 eCW3 ([facility] disorder with with loss of 12:00:00 AM EST [facility] depressed mood fetus Care) F43.20 Grief Grief Problem 06/14/2018 eCW3 ([facility] 12:00:00 AM EST [facility] Care) 309.81 PTSD PTSD Problem 06/14/2018 eCW3 ([facility] (post-traumatic (post-traumatic 12:00:00 AM EST [facility] stress disorder) stress disorder) Ca re) F32.9 Major depression, Major depressive Problem 06/14/2018 e CW3 ([facility] single episode disorder, single 12:00:00 AM EST [facility] episode, Care) unspecified F43.20 Grief Grief Problem 06/14/2018 eCW3 ([facility] 12:00:00 AM EST [facility] Care) 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 06/14/2018 eCW3 (Hu dson disorder with with loss of 12:00:00 AM EST [facility] depressed mood fetus Care) 309.81 PTSD PTSD Problem 06/14/2018 eCW3 ([facility] (post-traumatic (post-traumatic 12:00:00 AM EST [facility] stress disorder) stress disorder) Ca re) F32.9 Major depression, Major depressive Problem 06/14/2018 e CW3 ([facility] single episode disorder, single 12:00:00 AM EST [facility] episode, Care) unspecified Results ID Date Data Source [id number] 11/17/2019 10:30:00 PM EDT [facility] Name Value Range Interpretation Description Data Sup porting Code Source(s) Document(s ) SARS [facility] coronavirus 2 RNA This lab was ordered by [facility] and reported by [facility]. ID Date Data Source [id number] 08/10/2019 06:22:00 PM EDT [facility] Name Value Range Interpretation Code Description Data Terrie rce(s) Supporting Document(s ) RESULT [facility] This lab was ordered by DAVI mayorga nd reported by [facility]. Procedure Social History Code Duration Value Status Description Data Source(s ) Smoking 11/01/2018 Current Smoker completed Current Smoker eCW3 ( [facility] 12:00:00 AM EDT Health Ca re) Smoking 07/10/2018 Current Smoker completed Current Smoker eCW3 ( [facility] 12:00:00 AM EDT Health Ca re) Smoking 07/10/2018 Current Smoker completed Current Smoker eCW3 ( [facility] 12:00:00 AM EDT Health Ca re) Current Smoker completed Current Smoker eCW3 ( [facility]) Current Smoker completed Current Smoker eCW3 ( [facility]) Current Smoker completed Current Smoker eCW3 ( [facility]) Vital Signs ID Date Data Source UNK Name Value Range Interpretation Code Description Data Source(s) Body temperature 97.1 [degF] 97.1 [degF] eCW3 ( [facility]) Heart rate 20 /min 20 /min eCW3 ([facility]) Body mass index 34.53 kg/m2 34.53 kg/m2 eCW3 ([facility] (BMI) [Ratio] [facility]) Body weight 171 [lb_av] 171 [lb_av] eCW3 ([facility]) Body height [in_i] eCW3 ([facility])
[2020-02-05 23:20] VITALS: BP 122/67; PULSE 86; TEMP 97.8; BMI 30.2
--- NOTE | 2020-02-05 23:21 | PDOC ---
*Physical Exam - Vital Signs Last Vital Signs Temp Pulse Resp BP Pulse Ox 97.8 F 86 20 122/67 100 02/05/20 22:57 02/05/20 22:57 02/05/20 22:57 02/05/20 22:57 02/05/20 22:57 Medical Decision Making - Medical Decision Making 02/05/20 23:21 Patient seen by the advanced practice provider under my supervision. Ancillary testing reviewed as necessary. I agree with plan as outlined by the advanced practice provider.
[2020-02-05] MEDS ORDERED: KETOROLAC TROMETHAMINE 30 MG/1 ML VIAL IM ONE (23:43)
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
[2020-02-05] MEDS ORDERED: KETOROLAC TROMETHAMINE 30 MG/1 ML VIAL ONE (23:53)
== END 2020-02-06 00:10 | disposition home or self-care (01) ==
LOC: JER 22:32
PROC: 3E0233Z Introduction of Anti-inflammatory into Muscle, Percutaneous Approach (ICD-10-PCS; principal; 2020-02-05)
DX: M54.9 Dorsalgia, unspecified (principal)
CPT/HCPCS: 99284-25

== ENCOUNTER 2020-10-14 19:25 | Emergency (ER) | payer OTHER ==
[2020-10-14 19:35] VITALS: BP 103/60; PULSE 86; TEMP 98.3; BMI 33.9
[2020-10-14] MEDS ORDERED: methylPREDNISolone NA SUCC 125 MG/2 ML VIAL IVPB ONE (20:27)
[2020-10-14] MEDS ORDERED: ALBUTEROL SO4 2.5/IPRATROPIUM 0.5 INH SOL 3 ML VIAL.NEB. NEB SCH ×2 (20:30→22:15)
[2020-10-14] MEDS ORDERED: methylPREDNISolone NA SUCC 125 MG/2 ML VIAL ONE (20:30)
[2020-10-14] MEDS ORDERED: ALBUTEROL SO4 2.5/IPRATROPIUM 0.5 INH SOL 3 ML VIAL.NEB. NEB ONE (20:30)
[2020-10-14 21:12] LABS: BASO % 0.4 % (0-2.0); EOS % 3.6 % (0-4.5); HEMOGLOBIN 12.1 GM/dL (10.7-15.3); LYMPH % 13.6 % (8-40); MCH 28.6 pg (25.7-33.7); MCHC 33.7 g/dl (32.0-36.0); MEAN CELL VOLUME 84.7 fl (80-96); MONO % 7.2 % (3.8-10.2); NEUT % 75.2 % (42.8-82.8); PLATELET COUNT 226 10^3/uL (134-434); RBC 4.25 M/mm3 (3.60-5.2); RDW 13.8 % (11.6-15.6); WHITE BLOOD COUNT 8.8 K/mm3 (4.0-10.0)
[2020-10-14 21:17] LABS: URINE APPEARANCE CLEAR; URINE BILIRUBIN NEGATIVE (NEGATIVE); URINE COLOR YELLOW; URINE GLUCOSE (UA) NEGATIVE (NEGATIVE); URINE KETONE NEGATIVE (NEGATIVE); URINE LEUK ESTERASE NEGATIVE (NEGATIVE); URINE NITRITE NEGATIVE (NEGATIVE); URINE PROTEIN NEGATIVE (NEGATIVE); URINE UROBILINOGEN 0.2 mg/dL (0.2-1.0)
[2020-10-14 21:20] LABS: INR 1.05 (0.83-1.09); PROTHROMBIN TIME (PATIENT) 12.9 SEC (9.7-13.0)
[2020-10-14 21:22] LABS: ACTIVATED PTT 27.9 SECONDS (25.2-36.5)
[2020-10-14 21:39] LABS: ALBUMIN 3.4 g/dl (3.4-5.0); BLOOD UREA NITROGEN 7.3 mg/dL (7-18)
[2020-10-14 21:42] LABS: CREATININE 0.5 mg/dL (0.55-1.3)
[2020-10-14 21:44] LABS: BILIRUBIN,TOTAL 0.2 mg/dL (0.2-1); TOT PROT 7.2 g/dl (6.4-8.2)
== END 2020-10-15 00:07 | disposition left against medical advice (07) ==
LOC: JER 19:25
PROC: 3E0F7GC Introduction of Other Therapeutic Substance into Respiratory Tract, Via Natural or Artificial Opening (ICD-10-PCS; principal; 2020-10-14)
PROC: 3E0F7GC Introduction of Other Therapeutic Substance into Respiratory Tract, Via Natural or Artificial Opening (ICD-10-PCS; 2020-10-14)
PROC: 3E033GC Introduction of Other Therapeutic Substance into Peripheral Vein, Percutaneous Approach (ICD-10-PCS; 2020-10-14)
DX: O99.512 Diseases of the respiratory system complicating pregnancy, second trimester (principal)
CPT/HCPCS: 36415; 71046-TC-FY; 76801-TC; 80053; 81003; 83690; 83735; 85025; 85610; 85730; 87086; 99285-25

== ENCOUNTER 2020-11-28 13:08 | Emergency (ER) | payer OTHER ==
[2020-11-28 13:42] VITALS: BMI 34.3
[2020-11-28] MEDS ORDERED: SODIUM CHLORIDE 1,000 ML IV STA (14:34)
[2020-11-28 15:30] LABS: BASO % 0.5 % (0-2.0); EOS % 2.9 % (0-4.5); HEMATOCRIT 32.3 % (32.4-45.2); HEMOGLOBIN 11.1 GM/dL (10.7-15.3); LYMPH % 11.1 % (8-40); MCH 29.8 pg (25.7-33.7); MCHC 34.2 g/dl (32.0-36.0); MEAN CELL VOLUME 87.1 fl (80-96); MEAN PLT VOLUME 10.4 fl (7.5-11.1); MONO % 6.8 % (3.8-10.2); NEUT % 78.7 % (42.8-82.8); PLATELET COUNT 203 10^3/uL (134-434); RBC 3.71 M/mm3 (3.60-5.2); RDW 13.3 % (11.6-15.6); WHITE BLOOD COUNT 8.2 K/mm3 (4.0-10.0)
[2020-11-28 15:39] LABS: INR 1.02 (0.83-1.09); PROTHROMBIN TIME (PATIENT) 12.5 SEC (9.7-13.0)
[2020-11-28 15:42] LABS: ACTIVATED PTT 26.6 SECONDS (25.2-36.5)
[2020-11-28 15:49] LABS: CHLORIDE 106 mmol/L (98-107); SODIUM 140 mmol/L (136-145)
[2020-11-28 15:51] LABS: ANION GAP 10 MMOL/L (8-16); BLOOD UREA NITROGEN 7.5 mg/dL (7-18); CALCIUM 8.5 mg/dL (8.5-10.1); CO2 24 mmol/L (21-32); MAGNESIUM 1.8 mg/dL (1.8-2.4)
[2020-11-28 15:52] LABS: GLUCOSE,RANDOM 76 mg/dL (74-106)
[2020-11-28 15:54] LABS: SGPT/ALT 15 U/L (13-61)
[2020-11-28 15:55] LABS: CREATININE 0.5 mg/dL (0.55-1.3); SGOT/AST 13 U/L (15-37)
[2020-11-28 15:56] LABS: BILIRUBIN,TOTAL 0.2 mg/dL (0.2-1); TOT PROT 6.8 g/dl (6.4-8.2)
[2020-11-28 15:57] LABS: ALK PHOS 63 U/L (45-117)
[2020-11-28 19:02] VITALS: BP 118/55; PULSE 85; TEMP 98.1
== END 2020-11-28 19:02 | disposition home or self-care (01) ==
LOC: JER 13:08
PROC: 3E0337Z Introduction of Electrolytic and Water Balance Substance into Peripheral Vein, Percutaneous Approach (ICD-10-PCS; principal; 2020-11-28)
DX: R06.02 Shortness of breath (principal)
CPT/HCPCS: 36415; 80053; 82550; 83735; 84484; 85025; 85379; 85610; 85730; 93005; 93010; 93970-TC; 99285-25; C9803; U0003; U0005

== ENCOUNTER 2021-03-02 19:35 | Inpatient (IN) | payer OTHER ==
[2021-03-02] MEDS ORDERED: DEXTROSE 5%-LACTATED RINGERS 1,000 ML IV SCH ×2 (20:10)
[2021-03-02] MEDS ORDERED: ACETAMINOPHEN INJECTION 100 ML IVPB ONE (21:43)
[2021-03-02] MEDS ORDERED: ACETAMINOPHEN 1000 MG/100 ML VIAL IVPB ONE (22:00)
[2021-03-02 22:23] LABS: BASO % 0.4 % (0-2.0); EOS % 3.7 % (0-4.5); HEMATOCRIT 25.5 % (32.4-45.2); HEMOGLOBIN 8.4 GM/dL (10.7-15.3); LYMPH % 11.1 % (8-40); MCH 25.9 pg (25.7-33.7); MCHC 32.9 g/dl (32.0-36.0); MEAN CELL VOLUME 78.8 fl (80-96); MEAN PLT VOLUME 8.9 fl (7.5-11.1); MONO % 10.4 % (3.8-10.2); NEUT % 74.4 % (42.8-82.8); PLATELET COUNT 170 10^3/uL (134-434); RBC 3.24 M/mm3 (3.60-5.2); RDW 13.8 % (11.6-15.6)
[2021-03-02 22:42] LABS: CALCIUM 8.1 mg/dL (8.5-10.1)
[2021-03-02 22:43] LABS: ALBUMIN 2.4 g/dl (3.4-5.0); BLOOD UREA NITROGEN 3.8 mg/dL (7-18)
[2021-03-02 22:46] LABS: CREATININE 0.5 mg/dL (0.55-1.3)
[2021-03-02 22:47] LABS: BILIRUBIN,TOTAL 0.3 mg/dL (0.2-1); TOT PROT 6.2 g/dl (6.4-8.2)
[2021-03-02 23:01] LABS: URINE APPEARANCE CLEAR; URINE BILIRUBIN NEGATIVE (NEGATIVE); URINE COLOR YELLOW; URINE GLUCOSE (UA) NEGATIVE (NEGATIVE); URINE KETONE TRACE (NEGATIVE); URINE LEUK ESTERASE NEGATIVE (NEGATIVE); URINE NITRITE NEGATIVE (NEGATIVE); URINE PROTEIN NEGATIVE (NEGATIVE); URINE UROBILINOGEN 0.2 mg/dL (0.2-1.0)
[2021-03-03] MEDS ORDERED: morphine SULFATE 4 MG/ML VIAL IM ONE (00:05)
[2021-03-03] MEDS ORDERED: TERBUTALINE SULFATE 1 MG/1 ML VIAL SQ ONE ×2 (00:40→00:44)
[2021-03-03] MEDS ORDERED: ELECTROLYTE-148 SOLN 1,000 ML IV SCH (01:00)
[2021-03-03] MEDS ORDERED: CITRIC ACID/SODIUM CITRATE 30 ML UNIT-DOSE CUP PO ONE (04:01)
[2021-03-03 04:04] VITALS: BMI 34.9
[2021-03-03 04:08] LABS: PROTHROMBIN TIME (PATIENT) 11.7 SEC (9.7-13.0)
[2021-03-03 04:10] LABS: ACTIVATED PTT 25.7 SECONDS (25.2-36.5)
[2021-03-03] MEDS ORDERED: BETAMET ACET/BETAMET NA PH 30 MG/5 ML VIAL ONE (04:19)
[2021-03-03] MEDS ORDERED: BETAMET ACET/BETAMET NA PH 30 MG/5 ML VIAL IM ONE (04:20)
[2021-03-03] MEDS ORDERED: OXYTOCIN 20 UNITS in 0.9% NS 20 UNIT/1,000 ML INFUS.BAG IV ONE ×2 (04:22→06:55)
[2021-03-03] MEDS ORDERED: KETOROLAC TROMETHAMINE 30 MG/1 ML VIAL ONE ×2 (04:25→05:48)
[2021-03-03] MEDS ORDERED: ceFAZolin SODIUM 1 GM VIAL ONE (04:25)
[2021-03-03] MEDS ORDERED: SODIUM CHLORIDE 0.9% P/F 10 ML VIAL IJ ONE ×2 (04:25→05:45)
[2021-03-03] MEDS ORDERED: morphine SULFATE (PF) 1 MG/2 ML SYRINGE ONE (04:25)
[2021-03-03] MEDS ORDERED: ONDANSETRON 4 MG/2 ML VIAL ONE (04:25)
[2021-03-03] MEDS ORDERED: ePHEDrine SULFATE 50 MG/1 ML AMPULE ONE (04:26)
[2021-03-03] MEDS ORDERED: PROPOFOL 20 ML ONE (04:26)
[2021-03-03] MEDS ORDERED: SUCCINYLCHOLINE CHLORIDE 200 MG/10 ML SYRINGE ONE (04:26)
[2021-03-03] MEDS ORDERED: ONDANSETRON 4 MG/2 ML VIAL IVPUSH PRN (06:28)
[2021-03-03] MEDS ORDERED: HYDROmorphone *PCA* 10MG/50ML DISP.SYRIN PCA SCH (06:30)
[2021-03-03] MEDS ORDERED: ACETAMINOPHEN 1000 MG/100 ML VIAL IVPB PRN ×2 (06:32→07:32)
[2021-03-03] MEDS: OXYTOCIN 20 UNITS in 0.9% NS 20 UNIT/1,000 ML INFUS.BAG IV SCH ×2 (07:15→15:25)
[2021-03-03] MEDS ORDERED: SENNOSIDES/DOCUSATE COMBO (SENNA PLUS) TABLET (UD) PO PRN (07:32)
[2021-03-03] MEDS ORDERED: ONDANSETRON 4 MG/2 ML VIAL IVPB PRN (07:32)
[2021-03-03] MEDS ORDERED: IBUPROFEN 800 MG/8 ML IJ IVPB PRN (07:32)
[2021-03-03] MEDS ORDERED: oxyCODONE HCL 5 MG TABLET PO PRN (07:32)
[2021-03-03] MEDS ORDERED: ACETAMINOPHEN 325 MG TABLET (FP) PO PRN (07:32)
[2021-03-03] MEDS: CEFAZOLIN 2 GM in DEXTROSE 5%-WATER 100 ML IVPB SCH ×2 (11:57→19:32)
[2021-03-03] MEDS ORDERED: CEFAZOLIN 2 GM in DEXTROSE 5%-WATER 100 ML IVPB SCH (12:00)
[2021-03-03] MEDS: IBUPROFEN 600 MG TABLET (FP) PO PRN ×2 (13:45→20:51)
[2021-03-03] MEDS: SIMETHICONE 80 MG TAB.CHEW (FP) PO PRN (13:45)
[2021-03-03] MEDS ORDERED: ACETAMINOPHEN 1000 MG/100 ML VIAL IVPB ONE (21:45)
[2021-03-04 06:35] LABS: BASO % 0.1 % (0-2.0); HEMATOCRIT 23.4 % (32.4-45.2); MCH 26.7 pg (25.7-33.7); MEAN CELL VOLUME 78.6 fl (80-96); MEAN PLT VOLUME 9.8 fl (7.5-11.1); MONO % 7.2 % (3.8-10.2); NEUT % 87.7 % (42.8-82.8); PLATELET COUNT 172 10^3/uL (134-434); RBC 2.98 M/mm3 (3.60-5.2); RDW 13.8 % (11.6-15.6); WHITE BLOOD COUNT 10.6 K/mm3 (4.0-10.0)
[2021-03-04] MEDS: CEFAZOLIN 2 GM in DEXTROSE 5%-WATER 100 ML IVPB SCH (06:40)
[2021-03-04] MEDS ORDERED: BISACODYL 10 MG SUPP.RECT RC PRN (07:33)
[2021-03-04] MEDS ORDERED: PNEUMOC 13-VAL CONJ-DIP CRM/PF 0.5 ML DISP.SYRIN IM ONE (10:00)
[2021-03-04] MEDS ORDERED: DIPHTH,PERTUSS(ACELL),TET 0.5 ML DISP.SYRIN IM ONE (10:00)
[2021-03-04] MEDS: SIMETHICONE 80 MG TAB.CHEW (FP) PO PRN (10:25)
[2021-03-04] MEDS: IBUPROFEN 600 MG TABLET (FP) PO PRN ×2 (10:26→19:57)
[2021-03-04] MEDS ORDERED: ALBUTEROL SO4 0.083% IH SOL 2.5 MG/3 ML VIAL.NEB. NEB PRN ×2 (20:08→21:04)
[2021-03-05] MEDS: IBUPROFEN 600 MG TABLET (FP) PO PRN ×2 (06:09→10:37)
[2021-03-05 10:02] VITALS: BP 107/66; PULSE 92; TEMP 98
[2021-03-05] MEDS: SIMETHICONE 80 MG TAB.CHEW (FP) PO PRN (10:36)
== END 2021-03-05 12:00 | disposition home or self-care (01) | DRG 540 ==
LOC: JDEL 19:35 → JLDR 03-03 03:30 → J3W 03-03 08:50
PROVIDERS: ADMIT Specialist; ATTEND Specialist
PROC: 10D00Z1 Extraction of Products of Conception, Low, Open Approach (ICD-10-PCS; principal; 2021-03-03)
PROC: 0UN90ZZ Release Uterus, Open Approach (ICD-10-PCS; 2021-03-03)
DX: O60.14X0 Preterm labor third trimester with preterm delivery third trimester, not applicable or unspecified (principal); O40.3XX0 Polyhydramnios, third trimester, not applicable or unspecified; O26.893 Other specified pregnancy related conditions, third trimester; R10.9 Unspecified abdominal pain; O32.2XX0 Maternal care for transverse and oblique lie, not applicable or unspecified; N73.6 Female pelvic peritoneal adhesions (postinfective); Z3A.35 35 weeks gestation of pregnancy; Z37.0 Single live birth
CPT/HCPCS: 36415; 76817-TC; 76819-TC; 80053; 81003; 82947; 82951; 85025; 85027; 85610; 85730; 86780; 86850; 86900; 86901; 87086; 87389; 88307-TC; 90715; 94010; 94640; 96372; C9803; J0131; U0003; U0005